=== PATIENT | male | born 1995 | race African-American/Black ===

== ENCOUNTER 2017-10-05 19:28 | Emergency (ER) | payer OTHER ==
[2017-10-05] MEDS ORDERED: NS 1,000 ML IV (21:15)
[2017-10-05] MEDS ORDERED: ONDANSETRON 4MG/2ML VIAL (J2405) IV (21:15)
[2017-10-05] MEDS ORDERED: KETOROLAC 30 MG/ML VIAL (J1885) IV (21:15)
== END 2017-10-05 21:43 | disposition left against medical advice (07) ==
LOC: M ED 19:28
DX: R30.0 Dysuria (principal); N50.819 Testicular pain, unspecified; R10.9 Unspecified abdominal pain; R11.2 Nausea with vomiting, unspecified; R19.7 Diarrhea, unspecified; Z88.0 Allergy status to penicillin; Z88.1 Allergy status to other antibiotic agents; Z53.21 Procedure and treatment not carried out due to patient leaving prior to being seen by health care provider
CPT/HCPCS: 99284